=== PATIENT | female | born 1990 | race Caucasian/White ===

== ENCOUNTER 2020-11-07 19:31 | Emergency (ER) | payer OTHER, SELFPAY ==
--- NOTE | 2020-11-07 19:43 | ED.URI ---
HPI - URI/Sore Throat General Stated Complaint: COVID Symptoms Time Seen by Provider: 11/07/20 19:43 Source: patient and RN notes reviewed History of Present Illness HPI Narrative: Patient is a 30-year-old female who presents the urgent care with complaints of cough and body aches for the last 3 days. Patient states that her daughter has CHD and is in [facility] with rhinovirus and she is worried to go around her daughter if she is sick . Patient states that she does have a chronic cough due to smoking half a pack a day but does also have a history of pneumonia. Patient denies of any shortness of breath, known fevers, nausea, vomiting, exposure to strep or Covid. Patient states that she has taken 1 dose of aspirin without any relief. No other acute complaints. No acute distress noted. Patient aware of the plan of care. Some parts of this dictation were generated by voice recognition software and may contain typographical and/or grammatical inaccuracies. Related Data Allergies Allergy/AdvReac Type Severity Reaction Status Date / Time No Known Allergies Allergy Verified 06/30/19 12:46 Review of Systems Review of Systems: Narrative: CONSTITUTIONAL: Denies fever, chills, or sweats. EYES: Denies visual changes, redness, or discharge. ENT: Reports of mild sore throat with postnasal drainage CARDIOVASCULAR: Denies chest pain, palpitations, or edema. RESPIRATORY: Reports of cough without dyspnea GASTROINTESTINAL: Denies abdominal pain, nausea, vomiting, or diarrhea. GENITOURINARY: Denies dysuria or hematuria. SKIN: Denies rash or itching. MUSCULOSKELETAL: Denies back pain, joint pain. Reports of body aches NEUROLOGIC: Denies headache, numbness, or weakness. All other systems reviewed are negative, except as documented in HPI. PMFSH Social History Social History Gender identity (if verbalized by the patient): Female Comments At the time of my signature, I reviewed and agree with the nursing past medical, surgical, social, and family history. There is no relevant family history pertinent to the patient complaint. Exam Narrative: Exam Narrative: GENERAL: This is a well-nourished, well-developed patient, in no apparent distress. HEAD: normocephalic, atraumatic. EYES: PERRL. Sclera clear/white. Vision is grossly intact. EARS: External ears normal, auditory canals clear and without drainage, TMs normal without perforation. Hearing grossly intact. NOSE: External nose normal with no obvious nasal discharge, nares without redness, no rhinorrhea. THROAT: Mucous membranes moist, mild erythema noted posterior oropharynx with exudate ulceration. Mild postnasal drainage NECK: Neck supple, non-tender without lymphadenopathy CARDIOVASCULAR: Regular rate and rhythm without murmurs, gallops, or rubs. RESPIRATORY: Clear to auscultation. Breath sounds equal bilaterally. No wheezes, rales, or rhonchi. SKIN: warm, intact with no suspicious lesions or rash, good texture and turgor. NEURO: awake, alert, and oriented to person, place and time. There were no obvious focal neurologic abnormalities. EXTREMITIES: No clubbing, cyanosis, or edema. Course Vital Signs Vital signs: Vital Signs Temperature 98.8 F 11/07/20 19:50 Pulse Rate 101 H 11/07/20 19:50 Respiratory Rate 20 11/07/20 19:50 Blood Pressure 121/77 11/07/20 19:50 Pulse Oximetry 100 11/07/20 19:50 Temperature 98.8 F 11/07/20 19:50 Pulse Rate 101 H 11/07/20 19:50 Respiratory Rate 20 11/07/20 19:50 Blood Pressure 121/77 11/07/20 19:50 Pulse Oximetry 100 11/07/20 19:50 Reviewed MDM - URI/Sore Throat MDM Narrative Medical decision making narrative: Reviewed lab results with the patient. She is aware that rapid Covid swab was negative. Advised the patient to try to refrain from smoking. Complete steroid regimen as prescribed. Use inhaler as needed for coughing fits or shortness of breath. Use Tyl
[2020-11-07 19:50] VITALS: BP 121/77; PULSE 101; RESP 20; TEMP 37.1; O2SAT 100
== END 2020-11-07 20:02 | disposition home or self-care (01) ==
PROVIDERS: Emergency Provider Nurse Practitioner Family
DX: R05 Cough (principal); Z20.822 Contact with and (suspected) exposure to COVID-19
CPT/HCPCS: 87426; 99213; C9803; G0463

== ENCOUNTER 2020-11-20 19:44 | Emergency (ER) | payer OTHER, SELFPAY ==
--- NOTE | ~2020-11-20 | XR_ITS ---
EXAMINATION: XR chest 2V 11/20/2020 20:02 INDICATION: Productive cough. Diminished lung sounds. PROCEDURE: 2 view chest COMPARISON: 06/30/2019 FINDINGS: The lungs are clear. The cardiomediastinal silhouette is within normal limits. There are no pleural effusions. There is no pneumothorax suspected. IMPRESSION: 1: NO ACUTE CARDIOPULMONARY DISEASE. Reviewed, dictated and finalized at location A.
[2020-11-20 19:49] VITALS: BP 138/80; PULSE 100; RESP 20; TEMP 37.2; O2SAT 99
--- NOTE | 2020-11-20 19:52 | ED.URI ---
HPI - URI/Sore Throat General Chief Complaint: Upper Respiratory Infection Stated Complaint: cough Source: patient and RN notes reviewed Mode of arrival: ambulatory Limitations: no limitations History of Present Illness HPI Narrative: 30-year-old returns to the [facility] with complaints of a cough that keeps getting worse. States that she was seen 10 days ago and prescribed steroids and inhaler which has not made her cough better. 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 Denies fevers. No chest pain. Reports intermittent shortness of breath. Patient was seen on November 07. Patient is a smoker and states she has been trying to quit. States the stress of her baby being at [facility] for heart issues and not being able to see her is making her anxious and hard to quit smoking Related Data Allergies Allergy/AdvReac Type Severity Reaction Status Date / Time No Known Allergies Allergy Verified 11/07/20 20:00 Review of Systems Review of Systems: Narrative: CONSTITUTIONAL: Denies fever, chills, or sweats. Appears mildly ill EYES: Denies visual changes, redness, or discharge. ENT: Reports rhinorrhea, congestion, sore throat, or otalgia. CARDIOVASCULAR: Denies chest pain, palpitations, or edema. RESPIRATORY: Reports productive cough with intermittent dyspnea. GASTROINTESTINAL: Denies abdominal pain, nausea, vomiting, or diarrhea. MUSCULOSKELETAL: Denies back pain, joint pain, or myalgia. NEUROLOGIC: Denies headache, numbness, or weakness. PSYCHIATRIC: Denies anxiety or depression. All other systems reviewed are negative, except as documented in HPI. PMFSH Social History Social History Gender identity (if verbalized by the patient): Female Comments At the time of my signature, I reviewed and agree with the nursing past medical, surgical, social, and family history. There is no relevant family history pertinent to the patient complaint. Exam Narrative: Exam Narrative: GENERAL: This is a well-nourished, well-developed patient, in no apparent distress. HEAD: normocephalic, atraumatic. EYES: PERRL. Sclera clear/white. Vision is grossly intact. EARS: External ears normal, auditory canals clear and without drainage, TMs normal without perforation. Hearing grossly intact. NOSE: External nose normal nares without redness, positive rhinorrhea. THROAT: Mucous membranes moist, posterior pharynx clear. NECK: Neck supple, non-tender without lymphadenopathy, masses or thyromegaly. CARDIOVASCULAR: Regular rate and rhythm without murmurs, gallops, or rubs. RESPIRATORY: Coarseness noted right lower lobe, diminished left lower lobe. GASTROINTESTINAL: Abdomen soft, non-tender, nondistended. SKIN: warm, Dry, intact. NEURO: awake, alert, and oriented to person, place and time. There were no obvious focal neurologic abnormalities. BACK: Nontender without deformity. Course Vital Signs Vital signs: Vital Signs Temperature 99 F 11/20/20 19:49 Pulse Rate 100 11/20/20 19:49 Respiratory Rate 20 11/20/20 19:49 Blood Pressure 138/80 11/20/20 19:49 Pulse Oximetry 99 11/20/20 19:49 Temperature 99 F 11/20/20 19:49 Pulse Rate 100 11/20/20 19:49 Respiratory Rate 20 11/20/20 19:49 Blood Pressure 138/80 11/20/20 19:49 Pulse Oximetry 99 11/20/20 19:49 Reviewed MDM - URI/Sore Throat MDM Narrative Medical decision making narrative: Discharge instructions reviewed with patient, as well as provided in writing per nursing staff. The instructions also include specific and strict return/GO TO THE ER as well as f/u information. All questions have been answered, and the patient deny any further questions with discharge and discharge plan. Differential Diagnosis Differential diagnosis: Likely upper respiratory infection, sinusitis, viral infection and bronchitis Imaging Data Radiologist's impression
== END 2020-11-20 20:16 | disposition home or self-care (01) ==
PROVIDERS: Emergency Provider Nurse Practitioner
DX: J40 Bronchitis, not specified as acute or chronic (principal)
CPT/HCPCS: 71046; 99213; G0463

== ENCOUNTER 2021-01-25 13:22 | Emergency (ER) | payer OTHER, SELFPAY ==
[2021-01-25 13:29] VITALS: BP 111/69; PULSE 83; RESP 16; TEMP 37.3; O2SAT 100
--- NOTE | 2021-01-25 14:13 | ED.SKABFB ---
HPI - Skin/Abscess/Foreign Bdy General Chief complaint: Skin/Abscess/Foreign Body Stated complaint: Swollen Face Time Seen by Provider: 01/25/21 13:50 Source: patient, family and RN notes reviewed Mode of arrival: ambulatory Limitations: no limitations History of Present Illness HPI narrative: 30 year old female presents to express care with swelling and discomfort to her left cheek extending to her left eye which started this morning. Patient states that she picked what she thought was a pimple yesterday and this morning awoke to find the left side of her face, red warm, swollen, and painful. Patient states increase in pain with palpation and warmth noted to tissue. MD complaint: other (periorbital cellulitis to left side of face) Onset (ago): day(s) (1) Location: face (left side) Severity: severe Severity scale (1-10): 8 Quality: aching Pain Consistency: constant Relieving factors: none Exacerbating factors: palpation Context: other (attempted to pop a pimple) Associated symptoms: denies other symptoms Treatments prior to arrival: none Related Data Home Medications Medication Instructions Recorded Confirmed No Home Medications 01/25/21 01/25/21 Allergies Allergy/AdvReac Type Severity Reaction Status Date / Time No Known Allergies Allergy Verified 11/07/20 20:00 Review of Systems Review of Systems: Narrative: CONSTITUTIONAL: Unknown if fever,no chills, or sweats. EYES: Denies visual changes, redness, or discharge. ENT: Denies rhinorrhea, congestion, sore throat, or otalgia,left facial swelling and discomfort CARDIOVASCULAR: Denies chest pain, palpitations, or edema. RESPIRATORY: Denies cough or dyspnea. GASTROINTESTINAL: Denies abdominal pain, nausea, vomiting, or diarrhea. GENITOURINARY: Denies dysuria or hematuria. SKIN: swelling warmth, redness and pain to left side of face MUSCULOSKELETAL: Denies back pain, joint pain, or myalgia. NEUROLOGIC: Denies headache, numbness, or weakness. PSYCHIATRIC: Positive history of anxiety or depression. All systems reviewed & are unremarkable except as noted in HPI and below PMFSH Past Medical History Medical History (Updated 01/25/21 @ 15:55 by Autumn Valero NP) Ectopic Epilepsy on no meds last seizure one year ago 2020 MRSA (methicillin resistant Staphylococcus aureus) infection Surgical History Surgical History (Updated 01/25/21 @ 14:30 by Autumn Valero NP) History of surgical removal of ganglion cyst Social History Social History (Updated 01/25/21 @ 14:31 by Autumn Valero NP) Smoking packs per day: 0.5 Smoking cigarettes per day: 10.0 Years smoked: 14 Smoking pack-years: 7.00 Smoking status: Current every day smoker Tobacco type: cigarettes Alcohol intake: current Alcohol use details: rare social Substance use: current Substance use type: marijuana Last use: daily Living arrangements: with family Gender identity (if verbalized by the patient): Female Comments At time of signature, agree with nursing past medical, surgical, social and family history. There is no relevant family history pertinent to the presenting complaint Exam Narrative: Exam Narrative: GENERAL: Well-appearing, well-nourished, and in fair distress. HEAD: Normocephalic, atraumatic. EYES: PERRLA and EOMI. ENT: Nares clear, no rhinorrhea or epistaxis. Mucous membranes moist. NECK: Supple. no lymphadenopathy CHEST: Clear to auscultation. No respiratory distress.SAO2 100% on room air HEART: Regular rate and rhythm. No murmur heard. Normal peripheral pulses. ABDOMEN: Soft, nontender, nondistended, normal active bowel sounds. EXTREMITIES: Normal range of motion. No edema. SKIN: Warm, dry, left facial edema extending from bottom of cheek to tissue under left eye which is warm and painful to palpation. Small scabbed area noted to face where patient states that she squeezed what she thought was a pimple yesterday no induration of tissue note
== END 2021-01-25 14:22 | disposition short-term general hospital (02) ==
PROVIDERS: Emergency Provider Registered Nurse
DX: L03.213 Periorbital cellulitis (principal); F17.210 Nicotine dependence, cigarettes, uncomplicated; Z86.19 Personal history of other infectious and parasitic diseases
CPT/HCPCS: 99212; G0463

== ENCOUNTER 2022-04-14 12:49 | Emergency (ER) | payer OTHER, SELFPAY ==
[2022-04-14 12:54] VITALS: BP 113/65; PULSE 92; RESP 16; TEMP 37.4; O2SAT 99
--- NOTE | 2022-04-14 12:56 | ED.SKABFB ---
HPI - Skin/Abscess/Foreign Bdy General Chief complaint: Skin/Abscess/Foreign Body Stated complaint: Skin Sore Time Seen by Provider: 04/14/22 12:49 Source: patient and RN notes reviewed History of Present Illness HPI narrative: Patient is a 32-year-old female who presents the urgent care with complaints of a skin sore to the right chin. Patient states that it showed up approximately 2 days ago and is now opened, increased in redness and pain. Patient states she has had them in the past and has had a history of staph infection. Denies of any fever, nausea, vomiting. Patient has been using Neosporin and covering it with a Band-Aid. No other acute complaints. No acute distress noted. Patient aware of the plan of care. Some parts of this dictation were generated by voice recognition software and may contain typographical and/or grammatical inaccuracies. Related Data Allergies Allergy/AdvReac Type Severity Reaction Status Date / Time No Known Allergies Allergy Verified 04/14/22 13:00 Review of Systems Review of Systems: CONSTITUTIONAL: Denies fever, chills, or sweats. EYES: Denies visual changes, redness, or discharge. ENT: Denies rhinorrhea, congestion, sore throat, or otalgia. CARDIOVASCULAR: Denies chest pain, palpitations, or edema. RESPIRATORY: Denies cough or dyspnea. GASTROINTESTINAL: Denies abdominal pain, nausea, vomiting, or diarrhea. GENITOURINARY: Denies dysuria or hematuria. SKIN: Reports of the painful open, draining sore to the right [place] MUSCULOSKELETAL: Denies back pain, joint pain, or myalgia. NEUROLOGIC: Denies headache, numbness, or weakness. All other systems reviewed are negative, except as documented in HPI. 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 last seizure one year ago 2019 MRSA (methicillin resistant Staphylococcus aureus) infection Surgical History Surgical History (System 07/21/21 @ 16:28 by Compa Beckman) History of surgical removal of ganglion cyst Social History Social History (System 07/21/21 @ 16:28 by Compa Beckman) Smoking packs per day: 0.5 Smoking cigarettes per day: 10.0 Years smoked: 14 Smoking pack-years: 7.00 Smoking status: Current every day smoker Tobacco type: cigarettes Alcohol intake: current Alcohol use details: rare social Substance use: current Substance use type: marijuana Last use: daily Gender identity (if verbalized by the patient): Female Comments At the time of my signature, I reviewed and agree with the nursing past medical, surgical, social, and family history. There is no relevant family history pertinent to the patient complaint. Exam Narrative: GENERAL: This is a well-nourished, well-developed patient, in no apparent distress. HEAD: normocephalic, atraumatic. EYES: PERRL. Sclera clear/white. Vision is grossly intact. EARS: External ears normal NOSE: External nose normal with no obvious nasal discharge, nares without redness, no rhinorrhea. THROAT: Mucous membranes moist NECK: Neck supple CARDIOVASCULAR: Regular rate and rhythm without murmurs, gallops, or rubs. RESPIRATORY: Clear to auscultation. Breath sounds equal bilaterally. No wheezes, rales, or rhonchi. SKIN: 4 x 2.5 cm erythema surrounding the next 0.25 cm open and draining cystic acne to the right chin. Warm, intact with no suspicious lesions or rash, good texture and turgor. NEURO: awake, alert, and oriented to person, place and time. There were no obvious focal neurologic abnormalities. EXTREMITIES: No clubbing, cyanosis, or edema. Course Course Level of Care: Express Care Visit Vital Signs Vital signs: Vital Signs Temperature 99.4 F 04/14/22 12:54 Pulse Rate 92 04/14/22 12:54 Respiratory Rate 16 04/14/22 12:54 Blood Pressure 113/65 04/14/22 12:54 Pulse Oximetry 99 04/14/22 12:54 Oxygen Delivery Room Air 04/14/22 12:54 Temperature 99
== END 2022-04-14 13:19 | disposition home or self-care (01) ==
PROVIDERS: Emergency Provider Nurse Practitioner Family
DX: L01.00 Impetigo, unspecified (principal); F17.210 Nicotine dependence, cigarettes, uncomplicated; Z86.14 Personal history of Methicillin resistant Staphylococcus aureus infection
CPT/HCPCS: 99213; G0463

== ENCOUNTER 2022-08-20 11:17 | Emergency (ER) | payer OTHER, SELFPAY ==
[2022-08-20 11:30] VITALS: BP 129/71; PULSE 55; RESP 18; TEMP 37.6; O2SAT 100
--- NOTE | 2022-08-20 11:38 | ED.HA ---
HPI - Headache General Stated Complaint: Headache Time Seen by Provider: 08/20/22 11:39 Source: patient Mode of arrival: ambulatory Limitations: no limitations History of Present Illness HPI Narrative: Unable to get comprehensive HPI due to patient's condition 32-year-old female presented with complaint of ?ice pick headache? for 3 days. Upon entry to the room patient was found down on the floor, face down convulsing. Patient was aroused in less than 1 minute, sat of. She reports she had a history of epilepsy in the past, she has not had a seizure and for a long time? she is not medicated for seizures. MD elicited complaint: headache Related Data Allergies Allergy/AdvReac Type Severity Reaction Status Date / Time No Known Allergies Allergy Verified 08/20/22 11:27 Review of Systems Review of Systems: ROS unobtainable: Yes unobtainable due to medical condition PMFSH Past Medical History Medical History (Updated 08/20/22 @ 12:07 by Tamika Henson NP) Ectopic Epilepsy on no meds last seizure one year ago 2019 MRSA (methicillin resistant Staphylococcus aureus) infection Surgical History Surgical History (System 07/21/21 @ 16:28 by Compa Beckman) History of surgical removal of ganglion cyst Social History Social History (System 07/21/21 @ 16:28 by Compa Beckman) Smoking packs per day: 0.5 Smoking cigarettes per day: 10.0 Years smoked: 14 Smoking pack-years: 7.00 Smoking status: Current every day smoker Tobacco type: cigarettes Alcohol intake: current Alcohol use details: rare social Substance use: current Substance use type: marijuana Last use: daily Living arrangements: with family Gender identity (if verbalized by the patient): Female Comments At time of signature, agree with nursing past medical, surgical, social and family history. There is no relevant family history pertinent to the presenting complaint Exam Narrative: GENERAL: in acute distress. RESP: No respiratory distress SKIN: Diaphoretic Unable to do comprehensive knee exam due to medical condition, patient was sent via EMS to the emergency room Course Course Emergency Course: convenience recycle center tech went in to swab the patient for flu, COVID, strep and found the patient to be taste 1st on the ground having slight convulsions. My entered the room shortly after this and found the patient on the ground. Patient appeared to having a seizure. Patient's color was slightly cyanotic, however patient is still breathing and protecting her airway. Patient quickly aroused, sat up. Patient reported she had a history of epilepsy but has had a seizure in a long time, she is not medicated for epilepsy. EMS was called and arrived shortly after, patient agreed to be transferred to the emergency room. Patient's wine and spirits clerk reported to the RN that patient had history of fentanyl abuse, he is not sure if she was using drugs again at this time. Level of Care: Express Care Visit Vital Signs Vital signs: Vital Signs Temperature 99.7 F H 08/20/22 11:30 Pulse Rate 55 L 08/20/22 11:30 Respiratory Rate 18 08/20/22 11:30 Blood Pressure 129/71 08/20/22 11:30 Pulse Oximetry 100 08/20/22 11:30 Oxygen Delivery Room Air 08/20/22 11:30 Temperature 99.7 F H 08/20/22 11:30 Pulse Rate 55 L 08/20/22 11:30 Respiratory Rate 18 08/20/22 11:30 Blood Pressure 129/71 08/20/22 11:30 Pulse Oximetry 100 08/20/22 11:30 Oxygen Delivery Room Air 08/20/22 11:30 Reviewed. Transfer Transfered to: [facility]) Transportation: ALS Transfer rationale: Headache, syncope or seizure Accepting physician: Mick Critical Care Time Critical Care Time Critical Care Time: No Discharge Plan Discharge Clinical Impression: Headache Patient Disposition: Acute Care Hospital Condition: Guarded Prognosis Prescriptions: No Action doxycycline monohydrate 100 mg capsule 100 mg PO BID Qty: 20 0RF mup
[2022-08-20 11:43] VITALS: BP 105/55; PULSE 109; RESP 20; O2SAT 100
[2022-08-20 12:05] VITALS: BP 129/71; PULSE 55; RESP 18; TEMP 37.6; O2SAT 100
--- NOTE | 2022-08-20 14:34 | PC.NURSE ---
prior to discharge, adam bullock found pt face down on floor with mild shaking, arousable with touch. pt stated she remembered sitting in chair, did not recall falling to floor or how long she had been there. denied dizziness, confusion, worsening headache. states last seizure activity a long time ago.
== END 2022-08-20 11:50 | disposition short-term general hospital (02) ==
PROVIDERS: Emergency Provider Nurse Practitioner; PCP Emergency Medicine
DX: R51.9 Headache, unspecified (principal); F17.210 Nicotine dependence, cigarettes, uncomplicated; Z86.14 Personal history of Methicillin resistant Staphylococcus aureus infection
CPT/HCPCS: 99215; G0463

== ENCOUNTER 2024-02-23 19:39 | Emergency (ER) | payer OTHER, SELFPAY ==
[2024-02-23 19:42] VITALS: BP 131/93; PULSE 85; RESP 16; TEMP 36.9; O2SAT 100
--- NOTE | 2024-02-23 19:45 | ED.GENADULT ---
HPI - General Adult General Chief complaint: Skin/Abscess/Foreign Body Stated complaint: break out on face Time Seen by Provider: 02/23/24 19:45 Source: patient, RN notes reviewed and old records reviewed Mode of arrival: ambulatory Limitations: no limitations History of Present Illness HPI narrative: 34-year-old female presents to the [facility] with multiple complaints. Pimple to the face that is ?spreading has multiple open sores. Honey-colored scabs noted to most to them. Patient has a history of impetigo. Lump in her breast declining exam due to unable to do mammogram. States that she will call her senior visual designer Monday morning. Patient reports that she has had a lump in her breast for several months. Ankle swelling lateral ankle swelling without redness. Denies any injury. Is declining an x-ray at this time. Tenderness and swelling is noted to the lateral malleolus. Patient is not a great historian when it comes to past medical history nor time frame. Related Data Allergies Allergy/AdvReac Type Severity Reaction Status Date / Time No Known Allergies Allergy Verified 08/20/22 11:27 Review of Systems Review of Systems: All systems reviewed & are unremarkable except as noted in HPI and below Constitutional: Constitutional: Reports no additional constitutional complaints Eyes: Eyes: Reports no additional eye complaints ENT: Reports system reviewed and no additional complaints, except as documented Cardiovascular: Cardiovascular: Reports no additional cardiovascular complaints, Denies chest pain and Denies dyspnea Respiratory: Respiratory: Reports no additional respiratory complaints, Denies chest congestion, Denies cough and Denies dyspnea Gastrointestinal: Gastrointestinal: Reports no additional gastrointestinal complaints, Denies abdominal pain, Denies nausea and Denies vomiting Musculoskeletal: Musculoskeletal: Reports as per HPI Integumentary/Breasts: Skin/Breast: Reports as per HPI Neurologic: Reports system reviewed and no additional complaints, except as documented Psychiatric: Psychiatric: Reports no additional psychiatric complaints Allergic/Immunologic: Allergic/Immunologic: Reports no additional allergic/immunologic complaints FOR[facility]LY [facility] Past Medical History Medical History Ectopic Epilepsy on no meds last seizure one year ago 2019 MRSA (methicillin resistant Staphylococcus aureus) infection Surgical History Surgical History History of surgical removal of ganglion cyst Social History Social History Smoking packs per day: 0.5 Smoking cigarettes per day: 10.0 Years smoked: 14 Smoking pack-years: 7.00 Smoking status: Current every day smoker Tobacco type: cigarettes Alcohol intake: current Alcohol use details: rare social Substance use: current Substance use type: marijuana Last use: daily Living arrangements: with family Gender identity (if verbalized by the patient): Female Comments At the time of my signature, I reviewed and agree with the nursing past medical, surgical, social, and family history. There is no relevant family history pertinent to the patient complaint. Exam Const: General: cooperative, healthy appearing, comfortable, no acute distress, well developed, alert and well nourished Nutritional Appearance: well nourished Orientation/consciousness: patient oriented x3 Limitations: no limitations HENMT: Head: normal to inspection Ears: hearing grossly normal bilaterally and external ears normal Face/Nose/Sinus: Normal external nose present, Normal nares present, Normal nasal mucous membranes and turbinates present, normal facial exam and face symmetric Face and sinus: normal facial exam and face symmetric Eyes: General: appearance normal, both eyes and all related structures Alignment a
== END 2024-02-23 20:02 | disposition home or self-care (01) ==
PROVIDERS: Emergency Provider Nurse Practitioner
DX: L01.00 Impetigo, unspecified (principal); M25.471 Effusion, right ankle; F17.210 Nicotine dependence, cigarettes, uncomplicated; F12.90 Cannabis use, unspecified, uncomplicated; Z86.14 Personal history of Methicillin resistant Staphylococcus aureus infection
CPT/HCPCS: 99213; G0463

== ENCOUNTER 2024-08-01 18:26 | Emergency (ER) | payer OTHER, SELFPAY ==
[2024-08-01 18:34] VITALS: BP 100/56; PULSE 83; RESP 16; TEMP 37.3; O2SAT 96
--- NOTE | 2024-08-01 18:40 | ED.SKABFB ---
HPI - Skin/Abscess/Foreign Bdy General Chief complaint: Skin/Abscess/Foreign Body Stated complaint: poss impentigo Time Seen by Provider: 08/01/24 19:00 Source: patient and RN notes reviewed Mode of arrival: ambulatory Limitations: no limitations History of Present Illness HPI narrative: 34-year-old female presents with concern for a rash on her face. Reports history of impetigo. Reports she is picking off honey-colored crust from the rash. Reports she picks at her face MD complaint: rash Related Data Allergies Allergy/AdvReac Type Severity Reaction Status Date / Time No Known Allergies Allergy Verified 08/01/24 18:37 Review of Systems Review of Systems: CONSTITUTIONAL: Denies malaise, chills, sweats, or fever. EYES: Denies redness, or discharge. ENT: Denies rhinorrhea, congestion, swollen lips, swollen tongue CARDIOVASCULAR: Denies chest pain, palpitations, or edema. RESPIRATORY: Denies cough or dyspnea. GASTROINTESTINAL: Denies abdominal pain, nausea, vomiting SKIN: Reports honey-colored crusted rash on her face MUSCULOSKELETAL: Denies joint pain or myalgia. NEUROLOGIC: Denies headache. All systems reviewed & are unremarkable except as noted in HPI and below PMFSH Past Medical History Medical History Ectopic Epilepsy on no meds last seizure one year ago 2020 MRSA (methicillin resistant Staphylococcus aureus) infection Surgical History Surgical History History of surgical removal of ganglion cyst Social History Social History Smoking packs per day: 0.5 Smoking cigarettes per day: 10.0 Years smoked: 14 Smoking pack-years: 7.00 Smoking status: Current every day smoker Tobacco type: cigarettes Alcohol intake: current Alcohol use details: rare social Substance use: current Substance use type: marijuana Last use: daily Living arrangements: with family Gender identity (if verbalized by the patient): Female Comments At time of signature, agree with nursing past medical, surgical, social and family history. There is no relevant family history pertinent to the presenting complaint Exam Narrative: GENERAL: Well-appearing, well-nourished, and in no acute distress. HEAD: Normocephalic, atraumatic. EYES: PERRLA, conjunctivae clear, and EOMI. ENT: Mucous membranes moist. Oropharynx without edema, erythema or lesions. NECK: Supple. No lymphadenopathy CHEST: Clear to auscultation. No respiratory distress. HEART: Regular rate and rhythm. SKIN: Warm, dry. Honey-colored crusted rash and with scattered scabs noted to the lower face NEURO: Alert and oriented x3. PSYCH: Normal mood and affect Course Course Emergency Course: Patient is aware of diagnosis, understands and agrees to treatment plan. Anticipatory guidance given. Patient agrees to follow-up as directed and is aware of reasons to seek care at the emergency department. Portions of this record may have been created with voice recognition software Level of Care: Express Care Visit Vital Signs Vital signs: Reviewed. MDM - Skin/Abscess/Foreign Bdy MDM Narrative Medical decision making narrative: Does not appear at this time to be erythema multiforme, bullous, SJS, TEN; no evidence at this time to suggest RMSF, endocarditis or Lyme disease; patient looks well, nontoxic and is tolerating oral intake; no neurologic signs or symptoms; no headache, photophobia or neck pain; afebrile; appropriate for initial outpatient treatment; discussed the importance of follow-up, patient agrees; question, viral exanthema, contact dermatitis, allergic dermatitis, eczema, urticaria, impetigo. No soft palate or uvula edema, no tongue, lip edema or other mucosal involvement, no respiratory compromise, no stridor, no wheezing, no wheezing, no history of syncope, no hypotension, no nausea, vomiting, or diarrhea. Instructed patient to go to nearest ER immediately for any worsening symptoms including but not limited to: fever, spreading rash, pain, sore throat, headache, dizziness, chest pain, trouble breathing, or any symptoms concerning to the patient. Critical Care Time Critical Care Time Critical Care Time: No Discharge Plan Discharge Clinical Impression: Impetigo Patient Disposition: Home, Self-Care Condition: Stable Instructions: Antibiotic Form, Impetigo (ED) Additional Instructions: 1) Please follow-up with your primary care doctor in the next 1-2 days. 2) If you have any worsening of symptoms or any other urgent concerns please go to the ER. 3) Please take medications as prescribed and continue taking your home medications as usual. 4) Please read and follow information included in discharge instructions. Patient Language: Barbadian Prescriptions: New sulfamethoxazole-trimethoprim 800-160 mg tablet 1 tablet PO Q12H 7 Days Qty: 14 0RF mupirocin 2 % ointment 1 applic topical BID 7 Days Qty: 22 0RF No Action mupirocin calcium 2 % cream 1 applic TOPICAL TID Qty: 15 0RF doxycycline monohydrate 100 mg tablet 100 mg PO BID Qty: 14 0RF Follow-up/Referrals: PHYSICIAN,SENIOR CLINICAL RESEARCH SCIENTIST [Primary Care Provider] - Time of Disposition: 19:05
== END 2024-08-01 19:09 | disposition home or self-care (01) ==
PROVIDERS: Emergency Provider Nurse Practitioner
DX: L01.00 Impetigo, unspecified (principal); F17.210 Nicotine dependence, cigarettes, uncomplicated; Z86.14 Personal history of Methicillin resistant Staphylococcus aureus infection
CPT/HCPCS: 99213; G0463

== ENCOUNTER 2025-07-09 18:18 | Emergency (ER) | payer OTHER, SELFPAY ==
[2025-07-09 18:27] VITALS: BP 105/66; PULSE 79; RESP 16; TEMP 36.7; O2SAT 98
--- NOTE | 2025-07-09 18:45 | ED_ITS ---
HPI - Wound/Laceration General Chief Complaint: Wound/Laceration Stated Complaint: Skin Sore/Under Right Arm Time Seen by Provider: 07/09/25 18:35 Source: patient, RN notes reviewed and old records reviewed Mode of arrival: ambulatory Limitations: no limitations History of Present Illness HPI narrative: 35 year old female presents to express care with complaints of raised tender lesion to right axilla which she noticed this morning Patient has redness streaking up the inner aspect of her inner right arm measuring [id number]. Patient has 2cm x2cm raised firm lesion in right axilla with no fluctuation of tissue w ith palpable pain to site. Patient is afebrile. Discussed recommendation of going to ED to receive IV antibiotic and patient reports that she can't go that daughter is in hospital recovering from open heart surgery. Discussed use of Rocephin Im and oral antibiotics with understanding voiced if any fevers or any increased symptoms must go to ED for further evaluation Onset (ago): day(s) (noted this morning) Location: other (right axilla) Treatments prior to arrival: other (none) Related Data Allergies Allergy/AdvReac Type Severity Reaction Status Date / Time No Known Allergies Allergy Verified 07/09/25 18:29 Review of Systems Review of Systems: CONSTITUTIONAL: Denies fever, chills, or sweats. CARDIOVASCULAR: Denies chest pain, palpitations, or edema. RESPIRATORY: Denies cough or dyspnea. GASTROINTESTINAL: Denies abdominal pain, nausea, vomiting SKIN: Reports redness and swelling with raised painful lesion to right axilla with streaking up the inner arm no fluctuation of tissue. Denies purulent drainage, vesicles,is painful with no acute warmth MUSCULOSKELETAL: Denies myalgia. NEUROLOGIC: Denies headache, numbness All systems reviewed & are unremarkable except as noted in HPI and below PMFSH Past Medical History Medical History Ectopic Epilepsy on no meds last seizure one year ago 2019 MRSA (methicillin resistant Staphylococcus aureus) infection Surgical History Surgical History History of surgical removal of ganglion cyst Social History Social History Smoking packs per day: 0.5 Smoking cigarettes per day: 10.0 Years smoked: 14 Smoking pack-years: 7.00 Smoking status: Current every day smoker Tobacco type: cigarettes Alcohol intake: current Alcohol use details: rare social Substance use: current Substance use type: marijuana Last use: daily Living arrangements: with family Gender identity (if verbalized by the patient): Female Comments At time of signature, agree with nursing past medical, surgical, social and family history. There is no relevant family history pertinent to the presenting complaint Exam Narrative: GENERAL: Well-appearing, well-nourished, and in some acute distress. HEAD: Normocephalic, atraumatic. EYES: PERRLA and EOMI. ENT: Nares clear, no rhinorrhea or epistaxis. Mucous membranes moist.TM's normal throat pink with no lesions NECK: Supple. no lymphadenopathy CHEST: Clear to auscultation. No respiratory distress. SAO2 98% on room air HEART: Regular rate and rhythm. No murmur heard. Normal peripheral pulses. ABDOMEN: Soft, nontender, nondistended, normal active bowel sounds. EXTREMITIES: Normal range of motion. No edema. SKIN: Warm, dry. Erythema, induration, tenderness, warmth with raised tender lesion to right axilla with streaking up her arm no fluctuation of tissue,No vesicles,, ecchymosis, crepitus noted, is painful to palpation NEURO: No focal deficits. Alert and oriented x3. Course Course Level of Care: Express Care Visit Vital Signs Vital signs: Vital Signs Temperature 36.7 C 07/09/25 18:27 Pulse Rate 79 07/09/25 18:27 Respiratory Rate 16 07/09/25 18:27 Blood Pressure 105/66 07/09/25 18:27 Pulse Oximetry 98 07/09/25 18:27 Oxygen Delivery Room Air 07/09/25 18:27 Temperature 36.7 C 07/09/25 18:27 Pulse Rate 79 07/09/25 18:27 Respiratory Rate 16 07/09/25 18:27 Blood Pressure 105/66 07/09/25 18:27 Pulse Oximetry 98 07/09/25 18:27 Oxygen Delivery Room Air 07/09/25 18:27 [facility] Narrative Medical decision making narrative: patient has raised painful lesion to right axilla measures 2cm X2cm with no fluctuation of tissue or any drainage at this time with some red streaking up the inne aspect of arm 15cm X6cm. Recommendation of patient to go to ED for IV antibiotic states she can't go child is in hospital recovering from open heart surgery. Will treat with IM Rocephin wound care and oral antibiotics. Patient instructed if fevers should not be around daughter.Anticipatory guidance and reasons to seek care in ED reviewed with uderstanding voiced. Patient received Rocephin 500 mg IM received while in clinic with no reaction noted. Differential Diagnosis Differential Diagnosis: Differential diagnostic considerations for skin/abscess/foreign body issues include abscess of skin or subcutaneous tissue, viral exanthem, dermatophytosis, urticaria, herpes zoster, allergic reaction to drug, cellulitis, eczema, insect bites, impetigo, contact dermatitis, vasculitis. Critical Care Time Critical Care Time Critical Care Time: No Discharge Plan Discharge Clinical Impression: Abscess of axilla, right Patient Disposition: Home Condition: Stable Instructions: Antibiotic Form Additional Instructions: Wash right axilla with liquid Dial soap twice daily rinse apply mupirocin ointment twice daily to site watch for any increasing infection--redness, swelling, drainage Tylenol or ibuprofen for any fever pain follow up with PCP in 7-10 days for a wound check recheck if develop fever, chills, increasing symptom Go to the ER if your symptoms become worse of if ANY new symptoms develop antibiotics as prescribed take all doses follow-up with your PCP in 7 days for wound check or sooner if increased symptoms If your symptoms persist, change or worsen significantly before you can contact your personal physician then please, without delay, go to the emergency department for further evaluation. Follow-up with PCP in 7-10 days or sooner if needed Monitor for fevers Patient Language: Taiwanese Prescriptions: New cephalexin 500 mg capsule 500 mg PO Q8H Qty: 28 0RF sulfamethoxazole-trimethoprim [Bactrim DS] 800-160 mg tablet 1 tablet PO Q12H Qty: 14 0RF Follow-up/Referrals: UNKNOWN,DOCTOR [Primary Care Provider] Time of Disposition: 19:22 Quality Esperanza Coma Scale Eyes: Open Verbal: Oriented and Alert Motor: Follows Commands Esperanza Coma Total Score: 15
[2025-07-09] MEDS: cefTRIAXone 500 MG, LIDOCAINE 1% LOCAL INJ 1 ML IM (19:02)
--- OUTSIDE RECORDS SUMMARY | 2025-07-09 21:13 | XMS_ITS | Clinical Summary ---
Author Organization [facility] Address [address] [place] [id number] Care Team Providers Care Farm Crew Member Name Role Phone No, Physician Primary Care Provider [phone] Allergies No known active allergies Medications PNV 66-iron xem-vahjr-nar-dh a 27-1.25-55-300 mg capsule Take 1 tablet/capsu le by mouth daily Active cholecalciferol (VITAMIN D-3) 2000 unit tabletIndication s:Encounter for supervision of other normal in second trimester Take 1 tablet (2,000 Units total) by mouth daily 30 tablet 11 09/27/2019 Active FLUoxetine (PROzac) 20 mg capsuleIndicatio ns:Depression affecting Take 1 capsule (20 mg total) by mouth daily 30 capsule 11 01/24/2020 Active acetaminophen 500 mg capsuleIndicatio ns:Fever,Pain Take 1 capsule (500 mg total) by mouth every 6 (six) hours as needed for pain 90 tablet 02/12/2020 Active ibuprofen (ADVIL,MOTRIN) 600 mg tabletIndication s:Cramps,Pain Take 1 tablet (600 mg total) by mouth every 6 (six) hours as needed for pain 90 tablet 02/12/2020 Active cloNIDine (CATAPRES) 0.1 mg tablet Take 1 tablet (0.1 mg total) by mouth 4 (four) times a day for 2 days 8 tablet 03/20/2022 Active ondansetron (ZOFRAN) 4 mg tablet Take 1 tablet (4 mg total) by mouth every 6 (six) hours 12 tablet 03/20/2022 Active buprenorphine-na loxone (SUBOXONE) 4-1 mg per filmIndications: Opioid Dependence,Opioi d Withdrawal Symptoms Place 1 Film under the tongue 2 (two) times a day 3 Film 03/20/2022 Active Active Problems Problem Noted Date Diagnosed Date care following vaginal delivery 02/10 Overview (02/11/2020): # ID: Afebrile. No signs/symptoms of infection. #COVID-19: negative # Heme: EBL 200 mL. No symptoms acute blood loss anemia. # CV/Pulm: Vital signs stable, within normal limits. # GI/: Tolerating PO. Voiding spontaneously. # Pain: Controlled with above regimen. # Post DVT prophylaxis: The patient has the following MAJOR risk factors none and the following MINOR risk factors none. SCDs ordered for VTE prophylaxis. # MOC: Desires IUD at visit # MOF: Formula feeding #Hx epilepsy: Not currently on medication #Depression: On prozac 10mg daily, for PNBH. #Tobacco abuse: Consider nicotine patch, currently declines # Disposition: Continue routine care Normal labor 02/10/2020 Overview (02/10/2020): SROM: OT@12. Continue per protocol. FWB: Continuous monitoring. tracing category I ID: HIV negative. GBS negative. Membrane Status: SROM@ 0600 on 02/10/20 Indications for UDS: history of illicit drug use in last 12 months MOF: Plans to formula feed. MOC: Plans to use hIUD for contraception. Pain management: Desires epidural heterotaxy (dextrocardia, left atrial isomerism, balanced AV canal, DORV, aortic atresia with hypoplastic aortic arch) Hx epilepsy: Not currently on medication Depression: On prozac 10mg daily Tobacco abuse Hx MJ use: UDS sent on admission Tobacco abuse 11/27/2019 Overview (12/30/2019): Current tobacco use Previously counseled Marijuana use 11/27/2019 Overview (12/30/2019): Marijuana use - previously reports daily use, has cut back to 1-2 times per week Previously counseled UDS on admission to L&D Supervision of high-risk first chance 11/26/2019 Overview (2020): [x] Co-management vs. [] Full [facility] Care; Referring Provider: Dr. Paulie Marques, [x] Dating Criteria: LMP c/w 18wk US [x] Labs: Rh positive, Ab negative, Rubella immune, HIV NR, HepBSAg NR, RPR negative, GC/CT negative [x] Genetic Screening: S/p Amnio normal karyotype, EXPERIENCE DESIGNER pending [x] CBC: Hct 45, Plt 313 [x] UCx: Negative [x] Pap: NILM 08/2019 [x] EPDS of 8; PNBHS referral - discussed, patient considering 2nd Tri Labs: [x] Anatomy ultrasound: heterotaxy - See problem list [x] CBC/1hr gtt at 24-28wks: 12.1/36.1/238, 1 hr gtt 79 [x] Tdap (27-36wks) -done 12/13/19 3rd Tri Labs: [x] CBC/HIV/RPR: 12.6/38.4 plt 287, HIV neg, RPR NR [x] GBS: negative Counselling [x] MOD: IOL on 02/15 @ 2100 [x] Place of delivery: [facility] [] MOC: Mirena, counseled regarding postplacental placement, pt undecided [] Method of feeding: counseled, undecided [x] Tooth Clerk [x] PP Depression Discussed, 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 The distal descending colon and rectum are dilated. 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 The external genitalia are female. 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 Of note the patient's mother has heterotaxy. -s/p amniocentesis - normal karyotype and EXPERIENCE DESIGNER. 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 The variant is classified as a variant of uncertain clinical significance and may be unrelated to phenotype (given VUS and only one variant found in the gene instead of two). -Heterotaxy syndrome may be associated with splenic anomalies (in this case polysplenia more likely than asplenia), and intestinal malrotation - will require a evaluation for these -Continue co-management with care and Peds cardiology -Serial growth US, AGA cardiac anomaly affecting , antep artum 10/29/2019 Overview (11/27/2019): Findings consistent with heterotaxy syndrome, dextrocardia, left atrial isomerism, balanced AV canal, DORV, aortic atresia with hypoplastic aortic arch Per cardiology: -Repeat Echo today to follow this visit -Immediate main issue after will be the aortic atresia and hypoplastic arch - ductal-dependent lesion for systemic blood flow -Will need prostaglandins and will be admitted to NICU or Cardiac ICU - surgical intervention (complete repair vs staged approach) Depression affecting 09/27/2019 Overview (01/22/2020): Presented in adolscence (teens), worsening symptoms in . No history of depression Recently restart Prozac Epilepsy Overview (01/22/2020): History of epilepsy that started in her teens. Managed with medications in the past (doesn't recall which medications), currently stable on no meds, last seizure > 1 yr ago Neurologist - Dr. Herron at [facility], last seen in 2015 Recommend continued folic acid supplementation S/p specialized anatomy ultrasound serial growths- AGA Continued care with her Neurologist throughout the Resolved Problems Problem Noted Date Diagnosed Date Resolved Date Depression 11/26/2019 Immunizations Immunization Administration Dates Next Due Tdap 12/13/2019 Surgical History Surgery Date Site/Laterality Comments ECTOPIC SURGERY patient unsure if tube removed or just gestational sac NO PAST SURGERIES Medical History Medical History Date Comments Epilepsy (HCC) no recent seizur es, not on medication Depression since childhood. No post depression, started Prozac during Opiate abuse, continuous (HCC) Marijuana use Tobacco use Family History Medical History Relation Name Comments Colon cancer Neg Hx Ovarian cancer Neg Hx Uterine cancer Neg Hx Social History Tobacco Use Types Packs/Day Years Used Date Smoking Tobacco: Every Day Cigarettes 0.5 11 Smokeless Tobacco: Never Tobacco Cessation:Ready to Q uit: Yes; Counseling Given: Yes Alcohol Use Standard Drinks/Week Comments Not Currently 0 (1 standard drink = 0.6 oz pur e alcohol) AUDIT-C Answer Date Recorded Frequency of Alcohol Consumption Never 09/06/2019 Average Number of Drinks Not on file 020 Frequency of Binge Drinking Not on file 01/2020 PHQ-2 Answer Date Recorded PHQ-2 Total Score (If total score is 3 or more points, staff should administer the PHQ-9) 0 01/10/2020 [place] Depression Scale Answer Date Recorded [place] Depression Scale Total 8 11/27/2019 The thought of harming myself has occurred to me . Never 11/27/2019 Personal Safety Answer Date Recorded Getting School Help Needed Not on file 08/04 Comments No Sex and Gender Information Value Date Recorded Sex Assigned at Not on file Legal Sex Female 8:58 AM ACTUARIAL TECHNICIAN Gender Identity Not on file Sexual Orientation Not on file Obstetrics History Para Term AB IAB SAB Ectopic Multiple Livin g Live Births 3 2 2 1 1 0 2 2 Date Outcome GA Total Labor Labor/2nd/3rd Weight Sex Type Anes PTL Janae A1 A5 Name Clin 2014 Term 39w 0d 3.062 kg (6 lb 12 oz) M Vag-S pont Complications:None 2016 Ectopic 020 Term 38w 0d 0h 27m 0h 22m/0h 05m 2.79 kg (6 lb 2.4 oz) F Vag-S pont Epidur al N Livin g 8 9 Renu CUELLO Nandi ni, MD Complications:Other (Comment ) Delivery Location:[facility] Main C ampus ([facility]LD) Last Filed Vital Signs Vital Sign Reading Time Taken Comments Blood Pressure 110/72 03/20/2022 8:36 AM CDT Pulse 86 03/20/2022 8:30 AM CDT Temperature 36.4 C (97.6 F) 03/20/2022 8:30 AM CDT Respiratory Rate 18 03/20/2022 8:30 AM CDT Oxygen Saturation 96% 03/20/2022 8:30 AM CDT Inhaled Oxygen Concentration - - Weight 54.4 kg (120 lb) 03/20/2022 8:30 AM CDT Height 170.2 cm (5' 7) 03/20/2022 8:30 AM CDT Body Mass Index 18.79 03/20/2022 8:30 AM CDT Plan of Treatment Health Maintenance Due Date Last Done Comments Varicella Vaccines (1 of 2 - 13+ 2-dose series) 01/26/2005 HPV Vaccines (2 - 3-dose series) 11/03/2008 10/07/19 09 Regular Well Visit/Exam 18-64 01/26/2010 Pneumococcal vaccine <65 (1 of 2 - PCV) 01/26/2011 Cervical Cancer Screening 09/06/2020 09/06/2019 Depression Screening 01/09/2021 01/10/2020, 11/27/2019, 09/27/2019, Additional history exists Influenza Vaccine (#1) 2025 DTaP/Tdap/Td Vaccine (9 - Td or Tdap) 12/12/2029 12/13/2019, 10/17/2014, 03/03/2006, Additional history exists Hepatitis B Screening Completed 02/04/2002 , 09/10/2001, 08/13/2001 Hepatitis C Screening Completed 09/06/2019 Procedures Procedure Name Priority Date/Time Associated Diagnosis Comments HEPATITIS C ANTIBODY Routine 09/06/2019 3:50 PM ACTUARIAL TECHNICIAN , unspecified gestational age Encounter for supervision of other normal in second trimester THINPREP TIS PAP REFLEX HPV MRNA E6/E7, CHLAMYDIA/N.GONORRH OEAE Routine 09/06/2019 3:22 PM ACTUARIAL TECHNICIAN , unspecified gestational age Encounter for supervision of other normal in second trimester from Last 3 Months or Most Recently Relevant to Health Maintenance Results * Hepatitis C antibody (09/06/2019 3:50 PM ACTUARIAL TECHNICIAN) Hep C Ab Negative Negative [facility] ([place]) Comment:Testing performed by : [facility], [address] [place] [address], [place]., [address] Blood specimen (specimen) 09/06/2019 3:50 PM ACTUARIAL TECHNICIAN 09/07/2019 6:24 PM ACTUARIAL TECHNICIAN Nirali Erwin NP LAB MICROBIOLOGY - GENERAL ORDER LAUREN Final Result [facility] ([place]) 1 [facility] Department [place] [address] * THINPREP TIS PAP REFLEX HPV mRNA E6/E7, CHLAMYDIA/N.GONORRHOEAE (09/06/2019 3:22 PM ACTUARIAL TECHNICIAN) CLINICAL INFORMATION: [facility] [place] Comment:Information not prov ided LMP [facility] [place] Comment:INFORMATION NOT PROV IDED Previous Pap [facility] [place] Comment:INFORMATION NOT PROV IDED Prev. Bx [facility] [place] Comment:INFORMATION NOT PROV IDED SOURCE: [facility] [place] Comment:Information not prov ided Pap, specimen adequacy [facility] [place] Comment: Satisfactory for evaluation. Endocervical/transformation zone component present. Age and/or menstrual status not provided HPV interp [facility] [place] Comment:Negative for intraep ithelial lesion or malignancy. Infection: [facility] [place] Comment: Shift in vaginal shannan suggestive of bacterial vaginosis. COMMENTS [facility] [place] Comment: This Pap test has been evaluated with computer assisted technology. Infrastructure Technician [facility] - Comment: CHELSI BRIONES(ASCP) CT screening location: [place] [address] [place] [address] Comment [facility] - Comment: EXPLANATORY NOTE: The Pap is a screening test for cervical cancer. It is not a diagnostic test and is subject to false negative and false positive results. It is most reliable when a satisfactory sample, regularly obtained, is submitted with relevant clinical findings and history, and when the Pap result is evaluated along with historic and current clinical information. C. trachomatis RNA NOT DETECTED NOT DETECTED [facility] [place] N. gonorrhoeae RNA NOT DETECTED NOT DETECTED [facility] [place] Comment [facility] [place] Comment: The analytical performance characteristics of this assay, when used to test SurePath(TM) specimens have been determined by [employer]. The modifications have not been cleared or approved by the FDA. This assay has been validated pursuant to the CLIA regulations and is used for clinical purposes. For additional information, please refer to https://education.[employer]/faq/JRC479 (This link is being provided for information/ educational purposes only.) Endocervical/vag inal 09/06/2019 3:22 PM ACTUARIAL TECHNICIAN 09/09/2019 5:00 AM ACTUARIAL TECHNICIAN Narrative Resulting Agency Comment Performing Organization Information: Site ID: [id number] Name: [facility] Address: [address] [address] Director: Kirit Herron D.O., MPH Site ID: [place] Name: [facility] Address: [address] [place] [address] Director: Hernán Camacho Nirali Erwin NP LAB PATHOLOGY ORDERABLES Final R esult [facility] [place] [facility] [place] from Last 3 Months or Most Recently Relevant to Health Maintenance Insurance [facility] MEDICAID [facility] Advance Directives For more information, please contact: [phone] * Full Code (Latest Code Status on File) Date Activated Date Inactivated Comments 02/11/2020 1:03 AM 02/12/2020 5:57 PM * Full Code Date Activated Date Inactivated Comments 02/10/2020 1:30 PM 02/11/2020 1:03 AM Full CPR in case of cardiopulmonary arrest Care Teams Farm Crew Member Relationship Specialty Start Date End Date No, Physician PCP - General 03/20/22
--- OUTSIDE RECORDS SUMMARY | 2025-07-09 21:14 | XMS_ITS | Clinical Summary ---
Author Organization [facility] Address [address] [place] [address] Phone Care Team Providers Care Invasive Manager Name Role Phone Provider, None Primary Care Provider Unavailabl e Allergies No known active allergies Medications metoclopramide (REGLAN) 10 MG Tablet Take 1 Tab by mouth 4 times daily as needed for Nausea. 10 Tab 0 6 Active butalbital-aceta minophen-caffein e (FIORICET, ESGIC) 50-325-40 MG Tablet Take 1 Tab by mouth every 4 hours as needed for Headaches. 20 Tab 0 6 Active HYDROcodone-acet aminophen (NORCO) 5-325 MG Tablet Take 1-2 Tabs by mouth every 4 hours as needed for Pain. 20 Tab 0 6 Active HYDROcodone-acet aminophen (NORCO) 5-325 MG Tablet Take 1 Tab by mouth every 4 hours as needed for Pain. 10 Tab 0 7 Active ibuprofen (MOTRIN) 600 MG Tablet Take 1 Tab by mouth every 8 hours. 90 Tab 1 7 Active diazePAM (VALIUM) 5 MG Tablet Take 1 Tab by mouth nightly as needed for Muscle spasms. 15 Tab 7 Active HYDROcodone-acet aminophen (NORCO) 5-325 MG Tablet Take 1 Tab by mouth every 6 hours as needed for Pain. 20 Tab 7 Active ondansetron (ZOFRAN-ODT) 4 MG TABLET DISPERSIBLE Take 1 Tab by mouth every 8 hours as needed for Nausea - 1st line. 15 Tab 8 Active traMADol (ULTRAM) 50 MG Tablet Take 1 Tab by mouth every 6 hours as needed for Severe pain. 20 Tab 8 Active triamcinolone (KENALOG) 0.1 % Ointment Application Site: bilateral hands (Description and Location) 80 g 1 8 Active diphenhydrAMINE (BENADRYL) 25 MG Capsule Take 1-2 Caps by mouth every 6 hours as needed for Itching. 20 Cap 8 Active azithromycin (ZITHROMAX Z-NAVNEET) 250 MG Tablet 2 tab(s) daily for 1 day, then 1 tab(s) daily for days 2-5. 6 Tab 9 Active albuterol 108 (90 Base) MCG/ACT Aerosol Solution take 2 Puffs by inhalation every 6 hours as needed for Wheezing or Cough. 1 Inhaler 9 Active HYDROcodone-acet aminophen (NORCO) 5-325 MG TabletIndication s:Paronychia of left index finger Take 1 Tablet by mouth every 6 hours as needed for Moderate or more severe pain. 10 Tablet 1 Active Social History Tobacco Use Types Packs/Day Years Used Date Smoking Tobacco: Every Day Cigarettes 0.5 13 Smokeless Tobacco: Never Tobacco Cessation:Ready to Q uit: Not Asked; Counseling Given: Not Answered Alcohol Use Standard Drinks/Week Comments Yes 0 (1 standard drink = 0.6 oz pur e alcohol) Comments No Sex and Gender Information Value Date Recorded Sex Assigned at Not on file Legal Sex Female 10:37 PM CDT Gender Identity Not on file Sexual Orientation Not on file Last Filed Vital Signs Vital Sign Reading Time Taken Comments Blood Pressure 103/55 08/20/2022 4:15 PM PORTABLE TRACKMAN Pulse 86 08/20/2022 4:15 PM PORTABLE TRACKMAN Temperature 38.4 C (101.1 F) 08/20/2022 12:21 PM PORTABLE TRACKMAN Respiratory Rate 19 08/20/2022 4:15 PM PORTABLE TRACKMAN Oxygen Saturation 99% 08/20/2022 4:15 PM PORTABLE TRACKMAN Inhaled Oxygen Concentration - - Weight 59 kg (130 lb) 08/20/2022 12:21 PM PORTABLE TRACKMAN Height 170.2 cm (5' 7) 08/20/2022 12:21 PM PORTABLE TRACKMAN Body Mass Index 20.36 08/20/2022 12:21 PM PORTABLE TRACKMAN Plan of Treatment Health Maintenance Due Date Last Done Comments Hepatitis C Virus (HCV) Screening 1992 Varicella Immunization (1 of 2 - 13+ 2-dose series) 01/26/2005 Human Papillomavirus (HPV) Immunization (2 - 3-dose series) 11/03/2008 10/06/2008 Pap Smear 01/26/2013 Cervical Cancer Screening (CCS) 01/26/2022 HPV/Cotest 01/26/2022 Influenza Immunization (#1) 2025 SARS-COV-2 Immunization (1 - season) 2025 Respiratory Syncytial Virus (RSV) Immunization (Adult) (1 - 1-dose 75+ series) 01/26/2067 Hepatitis B Immunization Completed 002, 09/10/2001, 08/13/2001 Meningococcal Immunization (ACWY) Aged Out 03/03/2006 No longer eligible based on patient's age to complete this topic DTaP/Tdap/Td Immunization Discontinued 2019, 10/17/2014, 03/03/2006, Additional history exists TdaP Immunization Completed 12/13/2019, , 03/03/2006 Pneumococcal Immunization Combined Aged Out No longer eligible based on patient's age to complete this topic Rotavirus Immunization Aged Out No lo nger eligible based on patient's age to complete this topic Additional Health Concerns Infection Onset Date Last Indicated 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
--- OUTSIDE RECORDS SUMMARY | 2025-07-09 21:14 | XMS_ITS | Patient Health Record ---
Author Organization [facility] Address [address] [place] [address] Phone [phone] Care Team Providers Care Car Record Clerk Name Role Phone Hector WAGNERLeonel DupreeColby Primary Care Provider [phone] Allergies Allergen (clinical drug ingredient) Drug/Non Drug Allergy documented on EMR Reaction Allergy Type Onset Date Status amoxicillin Amoxicillin Unknown Drug Allergy Act jim Reason For Referral No Information Medications Medication SIG (Take, Route, Frequency, Duration) Notes Start Date End Date Diagnosis (ICD Code) Status Narcan 4 MG/0.1ML Liquid as directed Nasally Active Social History Tobacco Use: Social History Observation Description Date Details (start date - stop date) Current Smoker NA - NA Sex Observation Social History Observation Description Sex Observation Female Social History Primary Social History Social Info Question Answer Notes Employment Status Employment Status: Unemployed Illicit Substance Usage Illicit Substance Usage: Yes Interested in quitting: No Substance Used: Cannabis Frequency Cannabis is used: daily Alcohol Use Alcohol Use Frequency: Never Tobacco Use: Social Info Question Answer Notes Dont use, Tobacco Use/Smoking Are you a current geremias ry day smoker Additional Findings: Tobacco User Moderate cigar ette smoker (10-19 cigs/day) Problems Problem Type SNOMED Code ICD Code Dates Problem Status W/U Status Risk Notes Problem Opioid use disorder (9093916555) Opioid use disorder (F11.99) Added On: 022 Active confirmed Plan Of Treatment No Information Insurance Providers Payer Name Payer Address Payer Phone Subscriber Number Group Number Insured Name Patient Relationship to Insured Coverage Start Date Coverage End Date [facility] [address] [place] [phone] [id number] Facundo Guo Self - patient is the insured 2 [employer] [address] [place] [phone] [id number] Facundo Guo Self - patient is the insured 2 Medical (General) History Medical History History ICD Code Opioid use disorder Methamphetamine use Surgical History Surgery Date(Month/Year) Ganglion cyst removal Hospitalization History Reason Date(Month/Year)
== END 2025-07-09 19:28 | disposition home or self-care (01) ==
PROVIDERS: Emergency Provider Registered Nurse
DX: L02.411 Cutaneous abscess of right axilla (principal); F17.210 Nicotine dependence, cigarettes, uncomplicated; F12.90 Cannabis use, unspecified, uncomplicated; Z86.14 Personal history of Methicillin resistant Staphylococcus aureus infection
CPT/HCPCS: 96372; 99213; G0463; J0696; J2003